=== PATIENT | female | born 1940 | race American Indian/Alaskan Native ===

== ENCOUNTER 2017-06-06 13:44 | Observation (INO) | payer MEDICARE ==
[2017-06-06 13:45] VITALS: BMI 31.9
--- NOTE | 2017-06-06 15:05 | ED PDOC ---
Arrival/HPI - General Chief Complaint: Dizziness/Lightheaded Time Seen by Provider: 06/06/17 14:33 - History of Present Illness Narrative History of Present Illness (Text): 06/06/17 15:01 76 y/o AA F w/ PMHx pertinent for CAD s/p stent and Osteoarthritis s/p L TKR presents c/o dizziness and fatigue of 5 days duration. Patient states that she had a L TKR three weeks ago and was doing well with her rehab until recently, when she began having generalized weakness for 5 days. Last week while still at [facility], she was given a blood transfusion because she had similar symptoms and was found to be anemic. She describes the dizziness as a light-headedness when she gets out of bed, which resolves when she sits down or lays back down. Patient denies any recent illness, any sick contacts, any f/ch/n/v/d/sob/cp. She further denies a TUCKER, any loss of sensation and any motor deficits. Daughter is at bedside, who denies any change in patient's mentation. No further complaints at this time. (Morales Watson) Past Medical History - Provider Review Nursing Documentation Reviewed: Yes - Tetanus Immunization Tetanus Immunization: Unknown - Cardiac Hx Cardiac Disorders: Yes Hx Hypertension: Yes Hx Pacemaker: No - Pulmonary Hx Respiratory Disorders: Yes Hx Asthma: Yes Hx Pneumonia: Yes Hx Tuberculosis: Yes (AGE 16) - Neurological Hx Neurological Disorder: No - HEENT Hx HEENT Disorder: Yes (GLASSES) Hx Cataracts: Yes (IOLI RT EYE) - Renal Hx Renal Disorder: No - Endocrine/Metabolic Hx Endocrine Disorders: Yes Hx Diabetes Mellitus Type 2: Yes Hx Hypothyroidism: Yes - Hematological/Oncological Hx Blood Disorders: Yes Hx AIDS: No Hx Anemia: Yes Hx Blood Transfusions: Yes - Integumentary Hx Dermatological Disorder: No - Musculoskeletal/Rheumatological Hx Falls: No - Gastrointestinal Hx Gastrointestinal Disorders: Yes Hx Gastritis: Yes Hx Gastroesophageal Reflux: Yes - Genitourinary/Gynecological Hx Genitourinary Disorders: No - Psychiatric Hx Psychophysiologic Disorder: Yes Hx Anxiety: Yes (RELATED TO 1 YR. HOSPITALIZATION FOR TB AT AGE 16) Hx Emotional Abuse: No Hx Physical Abuse: No Hx Substance Use: No - Surgical History Hx Cataract Extraction: Yes (RT EYE IOLI) Hx Cardiac Catheterization: Yes (2007) Hx Coronary Stent: Yes (X1) Hx Musculoskeletal Surgery: Yes Hx Pulmonary Surgery: Yes (AGE 17 EXC. TUBERCULAR LESION LEFT LUNG) Hx Tubal Ligation: Yes Other/Comment: EPIDURALS FOR BACK PAIN - Anesthesia Hx Anesthesia: Yes Hx Anesthesia Reactions: No Hx Malignant Hyperthermia: No - Suicidal Assessment Feels Threatened In Home Enviroment: No Family/Social History - Physician Review Nursing Documentation Reviewed: Yes Family/Social History: Diabetes, Hypertension Smoking Status: Never Smoked Hx Alcohol Use: No Hx Substance Use: No Allergies/Home Meds Allergies/Adverse Reactions: Allergies No Known Allergies Allergy (Verified 06/06/17 14:15) Home Medications: Home Meds Medication Instructions Recorded Confirmed Valsartan/Hydrochlorothiazide 1 tab PO DAILY 04/25/17 06/06/17 [Valsartan-Hctz 160-12.5 mg Tab] Aspirin [Ecotrin] 325 mg PO DAILY 06/06/17 06/06/17 Atorvastatin Calcium [Lipitor] 80 mg PO DAILY 06/06/17 06/06/17 Isosorbide Mononitrate [Imdur] 60 mg PO DAILY 06/06/17 06/06/17 Metformin ER [Glucophage XR] 750 mg PO DAILY 06/06/17 06/06/17 Omeprazole [Omeprazole] 40 mg PO DAILY 06/06/17 06/06/17 Pregabalin [Lyrica] 50 mg PO BID 06/06/17 06/06/17 amLODIPine [Norvasc] 10 mg PO DAILY 06/06/17 06/06/17 oxyCODONE/Acetaminophen [Percocet 1 tab PO Q6 PRN 06/06/17 06/06/17 5/325 mg Tab] Review of Systems - Physician Review All systems were reviewed & negative as marked: Yes - Review of Systems Constitutional: Fatigue. absent: Normal, Weight Change, Fevers Eyes: Normal. absent: Vision Changes, Photophobia, Eye Pain ENT: Normal. absent: Hearing Changes, Tinnitus, Voice Changes Respiratory: Normal. absent: SOB, Cough, Sputum Cardiovascular: Normal. absent: Chest Pain, Palpitations, Edema, Calf Pain, CHOI Gastrointestinal: Normal. absent: Abdominal Pain, Constipation, Diarrhea, Nausea, Vomiting Genitourinary Female: Normal. absent: Dysuria, Hematuria Musculoskeletal: Normal. absent: Back Pain, Neck Pain Skin: Other (Patient states she has a scar at the site of her recent TKA). absent: Skin Lesions, Laceration, Ulcer, Cellulitis Neurological: Dizziness (Patient states she feels dizzy when she stands up from seated or laying position, feels near-syncopal). absent: Headache, Focal Weakness, Gait Changes, Speech Changes, Facial Droop Endocrine: Normal. absent: Diaphoresis, Polyuria Hemo/Lymphatic: Normal. absent: Easy Bleeding, Easy Bruising Psychiatric: Normal. absent: Anxiety, Depression Physical Exam Vital Signs Reviewed: Yes Temperature: Afebrile Blood Pressure: Normal Pulse: Regular Respiratory Rate: Normal Appearance: Positive for: Well-Appearing, Non-Toxic, Comfortable Pain Distress: None Mental Status: Positive for: Alert and Oriented X 3 - Systems Exam Head: Present: Atraumatic, Normocephalic. No: Contusion, Swelling, Ecchymosis Pupils: Present: PERRL. No: Sluggish, Non-Reactive, Pinpoint Extroacular Muscles: Present: EOMI. No: Gaze Palsy Conjunctiva: Present: Normal. No: Injected, Icteric Ears: Present: Normal, NORMAL TM. No: Erythema, TM Bulging Mouth: Present: Moist Mucous Membranes. No: Dry Nose (External): Present: Atraumatic. No: Abrasion, Contusion, Laceration Neck: Present: Normal Range of Motion. No: MIDLINE TENDERNESS, Paraspinal Tenderness Respiratory/Chest: Present: Clear to Auscultation, Good Air Exchange. No: Respiratory Distress, Accessory Muscle Use Cardiovascular: Present: Regular Rate and Rhythm, Murmurs (early systolic murmur ), Normal S1, S2 Abdomen: Present: Normal Bowel Sounds. No: Tenderness, Distention, Peritoneal Signs Back: Present: Normal Inspection. No: CVA Tenderness, Midline Tenderness, Paraspinal Tenderness Upper Extremity: Present: Normal Inspection, Normal ROM, NORMAL PULSES, Neurovascularly Intact. No: Cyanosis, Edema, Tenderness, Swelling Lower Extremity: Present: NORMAL PULSES, Other (LLE has scar from TKA. Site c/d /i, no signs of infection. Slight warmth around site of procedure). No: Edema , CALF TENDERNESS, Cyanosis Neurological: Present: GCS=15, CN II-XII Intact, Speech Normal, Motor Func Grossly Intact, Normal Sensory Function Skin: Present: Warm, Dry, Normal Color. No: Rashes Lymphatic: No: Cervical Adenopathy Psychiatric: Present: Alert, Oriented x 3, Normal Insight, Normal Concentration , Normal Affect, Normal Mood. No: Anxious, Agitated, Suicidal Ideation, Homicidal Ideation Medical Decision Making ED Course and Treatment: Assessed 06/06/17 15:00 Impression: 76 F w/ recent TKA and Hx of CAD s/p stents presents with 4 days duration of fatigue and dizziness. S/p transfusion at [facility] for anemia. No focal neurological deficits Plan: - CBC, CMP, Coags - CXR, EKG - Type and screen - UA, U Cx - Fluids - NS at 100 mls/hr - Reassess Reassessed 06/06/17 15:47 - CXR shows no active disease - EKG shows NSR with LAE and LVH - CBC shows improved Hgb/HCT, but not at baseline - CMP shows slightly elevated ALP and AST - Coags normal Reassessed 06/06/17 17:13 - UA, Urine Cx pending - Patient feels better after fluids, but still feels weak and light headed - Case d/w Dr. Estrada, who agrees to admission to his service for observation (Morales Watson) 06/06/17 17:57 Patient seen and examined with resident Came up with treatment and disposition plan with resident (Roger Smith) - Lab Interpretations Lab Results: 06/06/17 15:50 06/06/17 15:50 Lab Results 06/06/17 15:50: Blood Type Pending, Antibody Screen Pending, BBK History Checked Patient has bt 06/06/17 15:50: PT 11.3, INR 1.05, APTT 26.2 06/06/17 15:50: Sodium 139, Potassium 4.2, Chloride 102, Carbon Dioxide 25, Anion Gap 16, BUN 23 H, Creatinine 0.9, Est GFR ( Amer) > 60, Est GFR ( Non-Af Amer) > 60, Random Glucose 103, Calcium 9.2, Total Bilirubin 1.3, AST 40 H, ALT 25, Alkaline Phosphatase 175 H, Total Protein 7.5, Albumin 3.8, Globulin 3.8, Albumin/Globulin Ratio 1.0 L 06/06/17 15:50: WBC 5.6, RBC 3.74, Hgb 9.6 L, Hct 29.2 L, MCV 78.1 L, MCH 25.7, MCHC 32.9, RDW 15.7 H, Plt Count 277, MPV 8.6, Gran % 47.2 L, Lymph % (Auto) 43.2 H, Saunders % (Auto) 8.5 H, Eos % (Auto) 0.9 L, Baso % (Auto) 0.2, Gran # 2.66 , Lymph # 2.4, Saunders # 0.5, Eos # 0.1, Baso # 0.01 - RAD Interpretation Radiology Orders: 06/06/17 14:52 CHEST PORTABLE [RAD] Stat - Medication Orders Current Medication Orders: Aspirin (Ecotrin) 325 mg PO DAILY [facility] Atorvastatin Calcium (Lipitor) 80 mg PO DAILY [facility] Docusate Sodium (Colace) 100 mg PO TID [facility] Sodium Chloride (Sodium Chloride 0.9%) 1,000 mls @ 100 mls/hr IV .Q10H BLAKE Last Admin: 06/06/17 15:59 Dose: 100 mls/hr Isosorbide Mononitrate (Imdur) 60 mg PO DAILY [facility] Montelukast Sodium (Singulair) 10 mg PO QPM [facility] Non-Formulary Medication (Ferrous Sulfate [Feosol]) 325 mg PO DAILY [facility] Non-Formulary Medication (Omeprazole [Omeprazole]) 40 mg PO DAILY [facility] Oxycodone/Acetaminophen (Percocet 5/325 Mg Tab) 1 tab PO Q6 PRN PRN Reason: Pain, moderate (4-7) Stop: 06/09/17 17:50 Pregabalin (Lyrica) 50 mg PO BID [facility] Disposition/Present on Arrival - Present on Arrival Any Indicators Present on Arrival: No History of DVT/PE: No History of Uncontrolled Diabetes: No Urinary Catheter: No History of Decub. Ulcer: No History Surgical Site Infection Following: None - Disposition Have Diagnosis and Disposition been Completed?: Yes Disposition Time: 17:05 Patient Plan: Admission, Observation - Disposition Diagnosis: Dizziness Disposition: HOSPITALIZED Patient Problems: Current Active Problems Problem Status Onset Dizziness Acute Condition: FAIR Referrals: Maikel Garcia MD, PhD [Primary Care Provider] - Follow up with primary Forms: Active [employer] ([place])
--- NOTE | 2017-06-06 15:32 | RAD ---
HISTORY: weakness post op COMPARISON: 03/14/2013 FINDINGS: LUNGS: No active pulmonary disease. PLEURA: No significant pleural effusion identified, no pneumothorax apparent. CARDIOVASCULAR: Normal. OSSEOUS STRUCTURES: No significant abnormalities. VISUALIZED UPPER ABDOMEN: Normal. OTHER FINDINGS: None. IMPRESSION: No active disease.
[2017-06-06] MEDS: Sodium Chloride 0.9% 1,000 ML IV SCH (15:59)
[2017-06-06 16:13] LABS: BASO # 0.01 K/mm3 (0.0-2.0); BASO % 0.2 % (0.0-3.0); EOS # 0.1 (0.0-0.7); EOS % 0.9 % (1.5-5.0); GRAN # 2.66 (1.4-6.5); GRAN % 47.2 % (50.0-68.0); HEMATOCRIT 29.2 % (36.0-48.0); LYMPH # 2.4 (1.2-3.4); LYMPH % 43.2 % (22.0-35.0); MEAN CELL VOLUME 78.1 fl (80.0-105.0); MEAN CORPUSCULAR HEMOGLOBIN 25.7 pg (25.0-35.0); MEAN CORPUSCULAR HGB CONC 32.9 g/dl (31.0-37.0); MEAN PLATELET VOLUME 8.6 fl (7.0-11.0); MONO # 0.5 (0.1-0.6); MONO % 8.5 % (1.0-6.0); RED CELL DISTRIBUTION WIDTH 15.7 % (11.5-14.5); WHITE BLOOD COUNT 5.6 10^3/ul (4.5-11.0)
[2017-06-06 16:20] LABS: INR 1.05 (0.93-1.08); PARTIAL THROMBOPLASTIN TIME 26.2 Seconds (23.7-30.8)
[2017-06-06 16:22] LABS: ALKALINE PHOSPHATASE 175 U/L (38-126); ALT/SGPT 25 U/L (7-56); AST/SGOT 40 U/L (14-36); BILIRUBIN,TOTAL 1.3 mg/dL (0.2-1.3); BLOOD UREA NITROGEN 23 mg/dL (7-21); CALCIUM 9.2 mg/dL (8.4-10.5); CARBON DIOXIDE 25 mmol/L (21-33); CHLORIDE 102 mmol/L (98-107); GFR AFRICAN-AMERICAN > 60; GLUCOSE,RANDOM 103 mg/dL (70-110); POTASSIUM 4.2 mmol/L (3.6-5.0); SODIUM 139 mmol/L (132-148); TOTAL PROTEIN 7.5 g/dL (5.8-8.3)
--- NOTE | 2017-06-06 18:54 | CP.PCM.HP ---
<MARISABEL KAMARA - Last Filed: 06/06/17 19:21> History of Present Illness - History of Present Illness History of Present Illness: Marisabel Juan Jose DO PGY1 - Internal Medicine H&P CC: Dizziness HPI: 76 yo F with PMH pertinent for CAD s/p stent and OA with recent L TKR, presented with dizziness for the past 2 days and fatigue for the past 5 days. She describes her dizziness as lightheadedness that occurs when she stands up, which resolves after seconds to one minute, and if she lies or sits back down. She also admits that she has not been eating or drinking well for the past 5 days. This morning, she felt the dizziness when a physical therapist was at her home, and her BP at the time was 100's/50's, and BG was "normal" (over 100). Of note, she had a TKR 3 weeks ago, and has been undergoing rehab ever since, which she was tolerating well. She was discharged from [facility] last week, where she was undergoing rehab, but was noted to be anemic there, and received a blood transfusion. She denies any CP, SOB, cough, N/V/D/C, abdominal pain, F/C, polyuria, polydispia, TUCKER, focal weakness, focal numbness, melena, hematochezia, dysuria, hematuria, hemoptysis, hematemesis, night sweats, heat/cold intolerance, slurred speech, confusion. Daughter is at bedside who denies any change in patient's mentation. PMH: DM, HTN, CAD s/p stent, hypothyroidism, anemia, GERD, TB age 16, osteoarthritis PSH: Left TKR 3 weeks ago Meds: Amlodipine, ASA, Lipitor, Colace, Feosol, Imdur, Metformin ER, Singulair, Omeprazole, Percocet, Lyrica, Valsartan/HCTZ Soc: Denies tob, EtOH, illicits FHx: HTN, DM All: NKDA ROS: Constitutional: +Generalized weakness pt denies fever, chills ENT: pt denies dysphagia, otalgia, hearing deficit, rhinorrhea Eyes: pt denies sudden loss of vision, diplopia, blurred vision MSK: pt denies muscle stiffness, extremity cramping Cardio: +Dizziness with positional changes pt denies sob, heart murmur, CP, diaphoresis Pulm: pt denies cough, hemoptysis, wheeze GI: +Loss of appetite pt denies abdominal pain, constipation, melena, n/v/d : pt denies burning on urination, urinary frequency, hematuria, urinary urgency Neuro: +Dizziness pt denies paresis, paresthesia, tucker, numbness, tingling Derm: pt denies skin changes, lesions, nail changes Endo: pt denies intolerance to heat/cold, diaphoresis, night sweats, polydipsia Psych: pt denies anxiety, depression, mood changes Present on Admission - Present on Admission Any Indicators Present on Admission: No Past Patient History - Tetanus Immunizations Tetanus Immunization: Unknown - Past Medical History & Family History Past Medical History?: Yes - Past Social History Smoking Status: Never Smoked - CARDIAC Hx Cardiac Disorders: Yes Hx Hypertension: Yes Hx Pacemaker: No - PULMONARY Hx Respiratory Disorders: Yes Hx Asthma: Yes Hx Pneumonia: Yes Hx Tuberculosis: Yes (AGE 16) - NEUROLOGICAL Hx Neurological Disorder: No - HEENT Hx HEENT Problems: Yes (GLASSES) Hx Cataracts: Yes (IOLI RT EYE) - RENAL Hx Chronic Kidney Disease: No - ENDOCRINE/METABOLIC Hx Endocrine Disorders: Yes Hx Diabetes Mellitus Type 2: Yes Hx Hypothyroidism: Yes - HEMATOLOGICAL/ONCOLOGICAL Hx Blood Disorders: Yes Hx AIDS: No Hx Anemia: Yes Hx Blood Transfusions: Yes - INTEGUMENTARY Hx Dermatological Problems: No - MUSCULOSKELETAL/RHEUMATOLOGICAL Hx Falls: No - GASTROINTESTINAL Hx Gastrointestinal Disorders: Yes Hx Gastritis: Yes Hx Gastroesophageal Reflux: Yes - GENITOURINARY/GYNECOLOGICAL Hx Genitourinary Disorders: No - PSYCHIATRIC Hx Psychophysiologic Disorder: Yes Hx Anxiety: Yes (RELATED TO 1 YR. HOSPITALIZATION FOR TB AT AGE 16) Hx Emotional Abuse: No Hx Physical Abuse: No Hx Substance Use: No - SURGICAL HISTORY Hx Cataract Extraction: Yes (RT EYE IOLI) Hx Cardiac Catheterization: Yes (2007) Hx Coronary Stent: Yes (X1) Hx Musculoskeletal Surgery: Yes Hx Pulmonary Surgery: Yes (AGE 17 EXC. TUBERCULAR LESION LEFT LUNG) Hx Tubal Ligation: Yes Other/Comment: EPIDURALS FOR BACK PAIN - ANESTHESIA Hx Anesthesia: Yes Hx Anesthesia Reactions: No Hx Malignant Hyperthermia: No Meds Allergies/Adverse Reactions: Allergies Allergy/AdvReac Type Severity Reaction Status Date / Time No Known Allergies Allergy Verified 06/06/17 14:15 Physical Exam - Constitutional Appears: Non-toxic, No Acute Distress - Head Exam Head Exam: ATRAUMATIC, NORMOCEPHALIC - Eye Exam Eye Exam: EOMI, PERRL. absent: Nystagmus - ENT Exam ENT Exam: Mucous Membranes Moist Additional comments: [place]-Hallpike negative - Neck Exam Neck exam: Negative for: Lymphadenopathy, Thyromegaly - Respiratory Exam Respiratory Exam: Clear to Auscultation Bilateral, NORMAL BREATHING PATTERN. absent: Rales, Rhonchi, Wheezes - Cardiovascular Exam Cardiovascular Exam: RRR, +S1, +S2. absent: Bradycardia, Tachycardia Additional comments: Orthostatics positive with drop in DBP 11 from seated to standing, with reproduction of symptoms of lightheadedness and dizziness - GI/Abdominal Exam GI & Abdominal Exam: Normal Bowel Sounds, Soft. absent: Tenderness - Extremities Exam Extremities exam: Positive for: normal inspection. Negative for: calf tenderness, pedal edema Additional comments: Large scar over left anterior knee prior site of TKR - Neurological Exam Neurological exam: Alert, CN II-XII Intact, Oriented x3 Additional comments: No dysdiadochokinesia, finger to nose and heel to gardner normal. - Psychiatric Exam Psychiatric exam: Normal Affect, Normal Mood - Skin Skin Exam: Dry, Intact Results - Vital Signs Recent Vital Signs: Last Vital Signs Temp 98.5 F 06/06/17 14:18 Pulse 94 H 06/06/17 14:18 Resp 16 06/06/17 14:18 BP 107/71 06/06/17 14:18 Pulse Ox 98 06/06/17 14:18 - Labs Result Diagrams: 06/06/17 15:50 06/06/17 15:50 Assessment & Plan - Assessment and Plan (Free Text) Assessment: 76 yo F with PMH of DM, HTN, CAD s/p stent, OA s/p TKR, hypothyroidism, and recent anemia presents with complaints of dizziness with positional changes for the past two days and generalized weakness and decreased appetite for the past 5 days. Admitted for observation after near syncope. Plan: 1. Dizziness 2/2 orthostatic hypotension vs BPPV vs anemia - Patient is on multiple antihypertensives and has had poor PO intake for the past few days, most likely orthostatic hypotension - Orthostatic vitals positive on exam, negative Jose-Hallpike. Labs notable for anemia, though above baseline from prior visits. - Hold home antihypertensives - PRN orthostatics - Fall precautions - IVF NS@100cc/hr for fluid replacement - Heart healthy diet - PT Eval and Treat 2. Anemia - Patient reports that a little over a week ago, was noted to be anemic at [facility] and received 1U PRBC while there, though prior to that, she did not have a history of anemia - Continue home Feosol, Docusate - Hemodynamically stable, no active bleeding apparent - Continue to monitor daily CBC 3. H/o CAD s/p stent - Continue home ASA, lipitor, Imdur 4. H/o HTN - Hold home antihypertensives due to borderline hypotension 5. H/o DM - Hold oral hypoglycemics - SSI Low with accucheck ACHS - Patient is also on Lyrica for peripheral neuropathy 6. H/o Hypothyroidism - Patient reportedly on thyroid supplement, though not apparent in her list of home medications. Will contact her pharmacy tomorrow to confirm - Check TSH in AM GI/DVT Ppx Patient seen, discussed, and reviewed with attending <Marianne Estrada - Last Filed: 06/07/17 06:45> Results - Vital Signs Recent Vital Signs: Last Vital Signs Temp 98.1 F 06/07/17 02:57 Pulse 89 06/07/17 02:57 Resp 20 06/07/17 02:57 BP 123/59 L 06/07/17 02:57 Pulse Ox 100 06/06/17 21:21 - Labs Result Diagrams: 06/06/17 15:50 06/06/17 15:50 Labs: Laboratory Results - last 24 hr 06/06/17 19:57 POC Glucose (mg/dL) 94 Attending/Attestation - Attestation I have personally seen and examined this patient.: Yes I have fully participated in the care of the patient.: Yes I have reviewed all pertinent clinical information: Yes Notes (Text): 06/06/17 76 year old female with past medical history of diabetes, hypertension, CAD s/p stent, arthritis s/p recent total knee replacement, hypothyroidism, and anemia presents with complaints of dizziness and weakness. She was recently discharged from TCU. Admits to poor appetite and generalized weakness. Orthostatic vitals were positive. Will start with iv fluids. Check TSH. PT evaluation is requested. Will hold antihypertensives for now. Patient reports recent anemia, currently level is at above baseline. She will need close outpatient workup and follow up. Marianne Estrada MD Hospitalist.
[2017-06-06] MEDS: Insulin Lispro (humaLOG) LOW Coverage SC SCH (21:37)
[2017-06-06] MEDS: Oxycodone/Acetaminophen 5/325 mg Tab PO PRN (22:26)
--- NOTE | 2017-06-06 23:04 | CARD ---
APPROVED REPORT EKG Measurement Heart [id number] <Conclusion> Normal sinus rhythm Possible Left atrial enlargement Left ventricular hypertrophy Abnormal ECG
[2017-06-07 07:16] LABS: BASO # 0.01 K/mm3 (0.0-2.0); BASO % 0.2 % (0.0-3.0); EOS # 0.2 (0.0-0.7); EOS % 3.4 % (1.5-5.0); GRAN # 2.08 (1.4-6.5); GRAN % 36.7 % (50.0-68.0); HEMATOCRIT 25.3 % (36.0-48.0); LYMPH # 2.7 (1.2-3.4); LYMPH % 47.5 % (22.0-35.0); MEAN CELL VOLUME 78.6 fl (80.0-105.0); MEAN CORPUSCULAR HEMOGLOBIN 24.8 pg (25.0-35.0); MEAN CORPUSCULAR HGB CONC 31.6 g/dl (31.0-37.0); MEAN PLATELET VOLUME 8.6 fl (7.0-11.0); MONO # 0.7 (0.1-0.6); MONO % 12.2 % (1.0-6.0); RED CELL DISTRIBUTION WIDTH 15.8 % (11.5-14.5); WHITE BLOOD COUNT 5.7 10^3/ul (4.5-11.0)
[2017-06-07 07:30] LABS: ALB/GLOB RATIO 0.9 (1.1-1.8); ALKALINE PHOSPHATASE 154 U/L (38-126); ALT/SGPT 39 U/L (7-56); AST/SGOT 44 U/L (14-36); BILIRUBIN,TOTAL 1.1 mg/dL (0.2-1.3); BLOOD UREA NITROGEN 20 mg/dL (7-21); CALCIUM 8.4 mg/dL (8.4-10.5); CARBON DIOXIDE 25 mmol/L (21-33); CHLORIDE 107 mmol/L (98-107); GFR AFRICAN-AMERICAN > 60; GLUCOSE,RANDOM 92 mg/dL (70-110); MAGNESIUM 1.8 mg/dL (1.7-2.2); SODIUM 139 mmol/L (132-148); TOTAL PROTEIN 6.8 g/dL (5.8-8.3)
[2017-06-07] MEDS ORDERED: Pantoprazole 40 mg EC Tab PO SCH (07:30)
[2017-06-07] MEDS: Insulin Lispro (humaLOG) LOW Coverage SC SCH ×3 (08:13→17:18)
[2017-06-07 08:31] LABS: IRON 45 ug/dL (45-180)
[2017-06-07] MEDS ORDERED: Aspirin 325 mg EC Tablets PO SCH (10:00)
[2017-06-07] MEDS: Sodium Chloride 0.9% 1,000 ML IV SCH (10:05)
[2017-06-07] MEDS: Oxycodone/Acetaminophen 5/325 mg Tab PO PRN (11:51)
[2017-06-07 11:54] LABS: HEMATOCRIT 25.5 % (36.0-48.0)
[2017-06-07 13:27] LABS: FOLATE 15.7 ng/mL
--- NOTE | 2017-06-07 13:52 | CP.PCM.DIS ---
<YANICK KAMARA - Last Filed: 06/07/17 20:21> Provider - Provider Date of Admission: 06/06/17 17:10 Attending physician: Marianne Estrada MD Primary care physician: Maikel Gracia MD Phd Consults: Hem: [place] Time Spent in preparation of Discharge (in minutes): 45 Diagnosis - Discharge Diagnosis (1) Anemia Status: Acute Priority: High (2) Dizziness Status: Acute Priority: High (3) Primary osteoarthritis of left knee Status: Chronic Priority: Low Hospital Course - Lab Results Lab Results: Most Recent Lab Values WBC 5.7 10^3/ul (4.5-11.0) 06/07/17 06:45 RBC 3.22 10^6/uL (3.5-6.1) L 06/07/17 06:45 Hgb 8.2 g/dL (12.0-16.0) L 06/07/17 11:45 Hct 25.5 % (36.0-48.0) L 06/07/17 11:45 MCV 78.6 fl (80.0-105.0) L 06/07/17 06:45 MCH 24.8 pg (25.0-35.0) L 06/07/17 06:45 MCHC 31.6 g/dl (31.0-37.0) 06/07/17 06:45 RDW 15.8 % (11.5-14.5) H 06/07/17 06:45 Plt Count 227 10^3/uL (120.0-450.0) 06/07/17 06:45 MPV 8.6 fl (7.0-11.0) 06/07/17 06:45 Gran % 36.7 % (50.0-68.0) L 06/07/17 06:45 Lymph % (Auto) 47.5 % (22.0-35.0) H 06/07/17 06:45 [place] % (Auto) 12.2 % (1.0-6.0) H 06/07/17 06:45 Eos % (Auto) 3.4 % (1.5-5.0) 06/07/17 06:45 Baso % (Auto) 0.2 % (0.0-3.0) 06/07/17 06:45 Gran # 2.08 (1.4-6.5) 06/07/17 06:45 Lymph # 2.7 (1.2-3.4) 06/07/17 06:45 [place] # 0.7 (0.1-0.6) H 06/07/17 06:45 Eos # 0.2 (0.0-0.7) 06/07/17 06:45 Baso # 0.01 K/mm3 (0.0-2.0) 06/07/17 06:45 PT 11.3 Seconds (9.9-11.8) 06/06/17 15:50 INR 1.05 (0.93-1.08) 06/06/17 15:50 APTT 26.2 Seconds (23.7-30.8) 06/06/17 15:50 Sodium 139 mmol/L (132-148) 06/07/17 06:45 Potassium 4.0 mmol/L (3.6-5.0) 06/07/17 06:45 Chloride 107 mmol/L (98-107) 06/07/17 06:45 Carbon Dioxide 25 mmol/L (21-33) 06/07/17 06:45 Anion Gap 11 (10-20) 06/07/17 06:45 BUN 20 mg/dL (7-21) 06/07/17 06:45 Creatinine 0.8 mg/dL (0.5-1.4) 06/07/17 06:45 Est GFR ( Amer) > 60 06/07/17 06:45 Est GFR (Non-Af Amer) > 60 06/07/17 06:45 POC Glucose (mg/dL) 128 mg/dL (65-110) H 06/07/17 11:17 Random Glucose 92 mg/dL (70-110) 06/07/17 06:45 Calcium 8.4 mg/dL (8.4-10.5) 06/07/17 06:45 Phosphorus 4.0 mg/dL (2.5-4.5) 06/07/17 06:45 Magnesium 1.8 mg/dL (1.7-2.2) 06/07/17 06:45 Iron 45 ug/dL (45-180) 06/07/17 Unknown TIBC 276 ug/dL (265-497) 06/07/17 Unknown % Saturation 16 % (20-55) L 06/07/17 Unknown Ferritin 237.0 ng/mL 06/07/17 07:55 Total Bilirubin 1.1 mg/dL (0.2-1.3) 06/07/17 06:45 AST 44 U/L (14-36) H 06/07/17 06:45 ALT 39 U/L (7-56) 06/07/17 06:45 Alkaline Phosphatase 154 U/L (38-126) H 06/07/17 06:45 Total Protein 6.8 g/dL (5.8-8.3) 06/07/17 06:45 Albumin 3.2 g/dL (3.0-4.8) 06/07/17 06:45 Globulin 3.6 gm/dL 06/07/17 06:45 Albumin/Globulin Ratio 0.9 (1.1-1.8) L 06/07/17 06:45 Vitamin B12 379 pg/mL (239-931) 06/07/17 07:55 Folate 15.7 ng/mL 06/07/17 07:55 TSH 3rd Generation 2.81 mIU/mL (0.46-4.68) 06/07/17 06:45 Blood Type O POSITIVE 06/06/17 15:50 Antibody Screen Negative 06/06/17 15:50 BBK History Checked Patient has bt 06/06/17 15:50 - Hospital Course Hospital Course: 76 yo F with PMH of anemia, CAD s/p stent, OA s/p L TKR, and hypothyroidism who initially presented with dizziness for the past 2 days and fatigue with poor appetite for the past 5 days. Vitals were stable in the ER, though she was borderline hypotensive. Orthostatics positive in ER with drop in DBP by 10 with provocation of symptoms. Symptoms improved after some fluid administration. EKG was normal. Two of three antihypertensives were held, and she was maintianed on IVF hydration. She was also noted to be anemic, though actually higher than her baseline. Today, she feels much better after eating breakfast, no longer feeling dizzy or light headed. She denies any hematochezia, melena, hemoptysis, hematuria, F/C, N /V/D/C, abdominal pain, CP, SOB, TUCKER. Hgb dropped from 9.6 to 8.0 today, but it was likely dilutional and repeat H/H showed stabilization and improvement. Hem ( Thu) was consulted, who cleared her for discharge with instructions for outpatient follow up. All medications were discussed, all questions were answered to her satisfaction, and she was discharged to home. Patient seen, discussed, and reviewed with attending. Discharge Exam - Head Exam Head Exam: ATRAUMATIC, NORMOCEPHALIC - Eye Exam Eye Exam: EOMI, PERRL Additional comments: Conjunctival pallor - ENT Exam ENT Exam: Mucous Membranes Moist, Normal Oropharynx - Respiratory Exam Respiratory Exam: Clear to PA & Lateral. absent: Rales, Rhonchi, Wheezes - Cardiovascular Exam Cardiovascular Exam: RRR, +S1, +S2 - GI/Abdominal Exam GI & Abdominal Exam: Normal Bowel Sounds, Soft. absent: Tenderness - Extremities Exam Extremities exam: normal inspection - Neurological Exam Neurological exam: Alert, CN II-XII Intact, Oriented x3 - Psychiatric Exam Psychiatric exam: Normal Affect, Normal Mood - Skin Skin Exam: Dry, Intact, Normal Color Discharge Plan - Follow Up Plan Condition: FAIR Disposition: HOME/ ROUTINE Instructions: Diabetes Mellitus Type 2 in Adults (DC), Hypertension (DC), Dizziness (GEN), Anemia (DC), Fall Prevention (DC), Knee Replacement (DC) Additional Instructions: 1. Stop Norvasc and Hydrochlorothiazide, and maintain adequate hydration 2. Continue all other medications as prescribed 3. Follow up with Dr. Andino as indicated 4. Follow up with your PCP within 1 week For any new or worsening concerns, contact PCP immediately or return to ER Referrals: Maiekl Garcia MD, PhD [Primary Care Provider] - Marcos Andino MD [Staff Provider] - <Marianne Estrada - Last Filed: 06/08/17 08:16> Provider - Provider Date of Admission: 06/06/17 17:10 Attending physician: Marianne Estrada MD Primary care physician: Maikel Garcia MD Phd Hospital Course - Lab Results Lab Results: Most Recent Lab Values WBC 5.7 10^3/ul (4.5-11.0) 06/07/17 06:45 RBC 3.22 10^6/uL (3.5-6.1) L 06/07/17 06:45 Hgb 8.2 g/dL (12.0-16.0) L 06/07/17 11:45 Hct 25.5 % (36.0-48.0) L 06/07/17 11:45 MCV 78.6 fl (80.0-105.0) L 06/07/17 06:45 MCH 24.8 pg (25.0-35.0) L 06/07/17 06:45 MCHC 31.6 g/dl (31.0-37.0) 06/07/17 06:45 RDW 15.8 % (11.5-14.5) H 06/07/17 06:45 Plt Count 227 10^3/uL (120.0-450.0) 06/07/17 06:45 MPV 8.6 fl (7.0-11.0) 06/07/17 06:45 Gran % 36.7 % (50.0-68.0) L 06/07/17 06:45 Lymph % (Auto) 47.5 % (22.0-35.0) H 06/07/17 06:45 [place] % (Auto) 12.2 % (1.0-6.0) H 06/07/17 06:45 Eos % (Auto) 3.4 % (1.5-5.0) 06/07/17 06:45 Baso % (Auto) 0.2 % (0.0-3.0) 06/07/17 06:45 Gran # 2.08 (1.4-6.5) 06/07/17 06:45 Lymph # 2.7 (1.2-3.4) 06/07/17 06:45 [place] # 0.7 (0.1-0.6) H 06/07/17 06:45 Eos # 0.2 (0.0-0.7) 06/07/17 06:45 Baso # 0.01 K/mm3 (0.0-2.0) 06/07/17 06:45 PT 11.3 Seconds (9.9-11.8) 06/06/17 15:50 INR 1.05 (0.93-1.08) 06/06/17 15:50 APTT 26.2 Seconds (23.7-30.8) 06/06/17 15:50 Sodium 139 mmol/L (132-148) 06/07/17 06:45 Potassium 4.0 mmol/L (3.6-5.0) 06/07/17 06:45 Chloride 107 mmol/L (98-107) 06/07/17 06:45 Carbon Dioxide 25 mmol/L (21-33) 06/07/17 06:45 Anion Gap 11 (10-20) 06/07/17 06:45 BUN 20 mg/dL (7-21) 06/07/17 06:45 Creatinine 0.8 mg/dL (0.5-1.4) 06/07/17 06:45 Est GFR ( Amer) > 60 06/07/17 06:45 Est GFR (Non-Af Amer) > 60 06/07/17 06:45 POC Glucose (mg/dL) 107 mg/dL (65-110) 06/07/17 16:04 Random Glucose 92 mg/dL (70-110) 06/07/17 06:45 Calcium 8.4 mg/dL (8.4-10.5) 06/07/17 06:45 Phosphorus 4.0 mg/dL (2.5-4.5) 06/07/17 06:45 Magnesium 1.8 mg/dL (1.7-2.2) 06/07/17 06:45 Iron 45 ug/dL (45-180) 06/07/17 Unknown TIBC 276 ug/dL (265-497) 06/07/17 Unknown % Saturation 16 % (20-55) L 06/07/17 Unknown Ferritin 237.0 ng/mL 06/07/17 07:55 Total Bilirubin 1.1 mg/dL (0.2-1.3) 06/07/17 06:45 AST 44 U/L (14-36) H 06/07/17 06:45 ALT 39 U/L (7-56) 06/07/17 06:45 Alkaline Phosphatase 154 U/L (38-126) H 06/07/17 06:45 Total Protein 6.8 g/dL (5.8-8.3) 06/07/17 06:45 Albumin 3.2 g/dL (3.0-4.8) 06/07/17 06:45 Globulin 3.6 gm/dL 06/07/17 06:45 Albumin/Globulin Ratio 0.9 (1.1-1.8) L 06/07/17 06:45 Vitamin B12 379 pg/mL (239-931) 06/07/17 07:55 Folate 15.7 ng/mL 06/07/17 07:55 TSH 3rd Generation 2.81 mIU/mL (0.46-4.68) 06/07/17 06:45 Blood Type O POSITIVE 06/06/17 15:50 Antibody Screen Negative 06/06/17 15:50 BBK History Checked Patient has bt 06/06/17 15:50 Attending/Attestation - Attestation I have personally seen and examined this patient.: Yes I have fully participated in the care of the patient.: Yes I have reviewed all pertinent clinical information, including history, physical exam and plan: Yes Notes (Text): 06/07/17 76 year old female with past medical history of diabetes, hypertension, CAD s/p stent, arthritis s/p recent total knee replacement, hypothyroidism, and anemia presented with complaints of dizziness and weakness. Orthostatic vitals were positive and she was started on fluids. She was given iv iron for anemia. Hematology evaluation was requested who agreed with above and recommended close outpatient follow up. Her symptoms improved and she is discharged home today to follow up with her pmd and hematology. Continue with po iron and maintain adequate hydration. Consider outpatient GI evaluation if anemia is persistent. Marianne Estrada MD Hospitalist.
[2017-06-07 16:13] VITALS: BP 103/54; PULSE 82; RESP 20; TEMP 98; O2SAT 99
--- NOTE | 2017-06-07 19:45 | CP.PCM.CON ---
History of Present Illness - History of Present Illness History of Present Illness: 76 year old female with a history of HTN, DM, hypothyroid, CAD s/p stent, childhood TB s/p lung surgery, osteoarthritis s/p recent left total knee replacement admitted with fatigue, orthostatic hypotension, anemia. The patient reports to progressive fatigue and dizzyness over several days which concerned her and prompted her to come to the ER. She was found to have a hgb of 9.6 which nadired at 8.0 with hydration. She denies abnormal bleeding and bruising. She is s/p 1 dose of venofer. Past medical history: HTN, DM, hypothyroid, CAD s/p stent, childhood TB s/p lung surgery, osteoarthritis s/p recent left total knee replacement Past surgical history lung surgery related to TB as a child, left TKR Family history: Denies hematologic and oncologic problems Social history: Denies tobacco, alcohol and illicit drug use Allergies: NKA Review of systems: All remaining review of systems including HEENT, cardiovascular, respiratory, gastrointestinal, genitourinary, musculoskeletal, dermatologic, neurologic, and psychiatric are negative unless mentioned in the HPI. Past Patient History - Tetanus Immunizations Tetanus Immunization: Unknown - Past Medical History & Family History Past Medical History?: Yes - Past Social History Smoking Status: Never Smoked - CARDIAC Hx Cardiac Disorders: Yes Hx Hypercholesterolemia: Yes Hx Hypertension: Yes - PULMONARY Hx Respiratory Disorders: Yes Hx Asthma: Yes Hx Pneumonia: Yes Hx Tuberculosis: Yes (AGE 16) - NEUROLOGICAL Hx Neurological Disorder: No - HEENT Hx HEENT Problems: Yes (GLASSES) Hx Cataracts: Yes (IOLI RT EYE) - RENAL Hx Chronic Kidney Disease: No - ENDOCRINE/METABOLIC Hx Diabetes Mellitus Type 2: Yes Hx Hypothyroidism: Yes - HEMATOLOGICAL/ONCOLOGICAL Hx Blood Disorders: Yes Hx AIDS: No Hx Anemia: Yes Other/Comment: blood transfusion after left knee replacement - INTEGUMENTARY Hx Dermatological Problems: No - MUSCULOSKELETAL/RHEUMATOLOGICAL Hx Falls: No - GASTROINTESTINAL Hx Gastrointestinal Disorders: Yes Hx Gastroesophageal Reflux: Yes - GENITOURINARY/GYNECOLOGICAL Hx Genitourinary Disorders: No - PSYCHIATRIC Hx Psychophysiologic Disorder: Yes Hx Anxiety: Yes (RELATED TO 1 YR. HOSPITALIZATION FOR TB AT AGE 16) Hx Emotional Abuse: No Hx Physical Abuse: No Hx Substance Use: No - SURGICAL HISTORY Hx Cardiac Catheterization: Yes (2008) Hx Coronary Stent: Yes (X1) Hx Musculoskeletal Surgery: Yes Other/Comment: EPIDURALS FOR BACK PAIN, Left knee replacement 05/16/17 - ANESTHESIA Hx Anesthesia: Yes Hx Anesthesia Reactions: No Hx Malignant Hyperthermia: No Meds Allergies/Adverse Reactions: Allergies Allergy/AdvReac Type Severity Reaction Status Date / Time No Known Allergies Allergy Verified 06/06/17 14:15 - Medications Medications: Current Medications Aspirin (Ecotrin) 325 mg PO DAILY [facility] Last Admin: 06/07/17 10:01 Dose: 325 mg Atorvastatin Calcium (Lipitor) 80 mg PO DAILY [facility] Last Admin: 06/07/17 10:02 Dose: 80 mg Docusate Sodium (Colace) 100 mg PO TID [facility] Last Admin: 06/07/17 17:21 Dose: 100 mg Ferrous Sulfate (Feosol) 324 mg PO DAILY [facility] Last Admin: 06/07/17 10:01 Dose: 324 mg Heparin Sodium (Porcine) (Heparin) 5,000 units SC Q12 [facility] PRN Reason: Protocol Last Admin: 06/07/17 10:02 Dose: 5,000 units Insulin Human Lispro (Humalog Low) 0 units SC ACHS [facility] PRN Reason: Protocol Last Admin: 06/07/17 17:18 Dose: Not Given Isosorbide Mononitrate (Imdur) 60 mg PO DAILY [facility] Last Admin: 06/07/17 10:02 Dose: 60 mg Montelukast Sodium (Singulair) 10 mg PO QPM [facility] Last Admin: 06/07/17 17:22 Dose: 10 mg Oxycodone/Acetaminophen (Percocet 5/325 Mg Tab) 1 tab PO Q6 PRN PRN Reason: Pain, moderate (4-7) Stop: 06/09/17 17:50 Last Admin: 06/07/17 11:51 Dose: 1 tab Pantoprazole Sodium (Protonix Ec Tab) 40 mg PO ACB [facility] Last Admin: 06/07/17 08:16 Dose: 40 mg Pregabalin (Lyrica) 50 mg PO BID [facility] Last Admin: 06/07/17 17:22 Dose: 50 mg Physical Exam - Head Exam Head Exam: ATRAUMATIC - Eye Exam Eye Exam: Normal appearance - ENT Exam ENT Exam: Mucous Membranes Dry - Respiratory Exam Respiratory Exam: NORMAL BREATHING PATTERN - Cardiovascular Exam Cardiovascular Exam: +S1, +S2 - GI/Abdominal Exam GI & Abdominal Exam: Normal Bowel Sounds - Extremities Exam Extremities exam: Positive for: normal inspection - Neurological Exam Neurological exam: Oriented x3 - Psychiatric Exam Psychiatric exam: Normal Affect, Normal Mood - Skin Skin Exam: Warm Results - Vital Signs Recent Vital Signs: Last Vital Signs Temp 98 F 06/07/17 16:12 Pulse 82 06/07/17 16:12 Resp 20 06/07/17 16:12 BP 103/54 L 06/07/17 16:12 Pulse Ox 99 06/07/17 16:12 - Labs Result Diagrams: 06/07/17 11:45 06/07/17 06:45 Labs: Laboratory Results - last 24 hr 06/06/17 06/07/17 06/07/17 19:57 06:45 06:45 WBC 5.7 RBC 3.22 L Hgb 8.0 L Hct 25.3 L MCV 78.6 L MCH 24.8 L MCHC 31.6 RDW 15.8 H Plt Count 227 MPV 8.6 Gran % 36.7 L Lymph % (Auto) 47.5 H [place] % (Auto) 12.2 H Eos % (Auto) 3.4 Baso % (Auto) 0.2 Gran # 2.08 Lymph # 2.7 [place] # 0.7 H Eos # 0.2 Baso # 0.01 Sodium Potassium Chloride Carbon Dioxide Anion Gap BUN Creatinine Est GFR ( Amer) Est GFR (Non-Af Amer) POC Glucose (mg/dL) 94 Random Glucose Calcium Phosphorus Magnesium Iron TIBC % Saturation Ferritin Total Bilirubin AST ALT Alkaline Phosphatase Total Protein Albumin Globulin Albumin/Globulin Ratio Vitamin B12 Folate TSH 3rd Generation 2.81 06/07/17 06/07/17 06/07/17 06:45 07:18 07:55 WBC RBC Hgb Hct MCV MCH MCHC RDW Plt Count MPV Gran % Lymph % (Auto) [place] % (Auto) Eos % (Auto) Baso % (Auto) Gran # Lymph # [place] # Eos # Baso # Sodium 139 Potassium 4.0 Chloride 107 Carbon Dioxide 25 Anion Gap 11 BUN 20 Creatinine 0.8 Est GFR ( Amer) > 60 Est GFR (Non-Af Amer) > 60 POC Glucose (mg/dL) 106 Random Glucose 92 Calcium 8.4 Phosphorus 4.0 Magnesium 1.8 Iron TIBC % Saturation Ferritin 237.0 Total Bilirubin 1.1 AST 44 H ALT 39 Alkaline Phosphatase 154 H Total Protein 6.8 Albumin 3.2 Globulin 3.6 Albumin/Globulin Ratio 0.9 L Vitamin B12 379 Folate 15.7 TSH 3rd Generation 06/07/17 06/07/17 06/07/17 11:17 11:45 16:04 WBC RBC Hgb 8.2 L Hct 25.5 L MCV MCH MCHC RDW Plt Count MPV Gran % Lymph % (Auto) [place] % (Auto) Eos % (Auto) Baso % (Auto) Gran # Lymph # [place] # Eos # Baso # Sodium Potassium Chloride Carbon Dioxide Anion Gap BUN Creatinine Est GFR ( Amer) Est GFR (Non-Af Amer) POC Glucose (mg/dL) 128 H 107 Random Glucose Calcium Phosphorus Magnesium Iron TIBC % Saturation Ferritin Total Bilirubin AST ALT Alkaline Phosphatase Total Protein Albumin Globulin Albumin/Globulin Ratio Vitamin B12 Folate TSH 3rd Generation 06/07/17 Unknown WBC RBC Hgb Hct MCV MCH MCHC RDW Plt Count MPV Gran % Lymph % (Auto) [place] % (Auto) Eos % (Auto) Baso % (Auto) Gran # Lymph # [place] # Eos # Baso # Sodium Potassium Chloride Carbon Dioxide Anion Gap BUN Creatinine Est GFR ( Amer) Est GFR (Non-Af Amer) POC Glucose (mg/dL) Random Glucose Calcium Phosphorus Magnesium Iron 45 TIBC 276 % Saturation 16 L Ferritin Total Bilirubin AST ALT Alkaline Phosphatase Total Protein Albumin Globulin Albumin/Globulin Ratio Vitamin B12 Folate TSH 3rd Generation Assessment & Plan (1) Anemia Assessment and Plan: element of surgical blood loss work up sent and can be followed as outpatient agree with 1 dose of venofer outpatient f/u with me in 1 week Thank you for this interesting consult. Status: Acute Priority: High
== END 2017-06-07 21:32 | disposition home or self-care (01) ==
LOC: ED 13:44 → ERH 17:10 → 5RNO 20:31
PROVIDERS: ADMIT Internal Medicine; ATTEND Internal Medicine
DX: D64.9 Anemia, unspecified (principal); R42 Dizziness and giddiness; M17.12 Unilateral primary osteoarthritis, left knee; I25.10 Atherosclerotic heart disease of native coronary artery without angina pectoris; E03.9 Hypothyroidism, unspecified; I10 Essential (primary) hypertension; E11.9 Type 2 diabetes mellitus without complications; K21.9 Gastro-esophageal reflux disease without esophagitis; R53.1 Weakness; Z79.82 Long term (current) use of aspirin; Z79.84 Long term (current) use of oral hypoglycemic drugs; Z96.652 Presence of left artificial knee joint; Z86.11 Personal history of tuberculosis; Z98.41 Cataract extraction status, right eye; Z95.5 Presence of coronary angioplasty implant and graft; Z96.1 Presence of intraocular lens
CPT/HCPCS: 36415; 71010; 80053; 82607; 82728; 82746; 82948; 83540; 83550; 83735; 84100; 84443; 85014; 85018; 85025; 85610; 85730; 86850; 86900; 87040; 93005; 96372; 96374; 97116; 97161; 99285; G0378; G8978; G8979; J1644; J1756; J7040